=== PATIENT | female | born 1960 | race Caucasian/White ===

== ENCOUNTER 2021-09-22 06:16 | Inpatient (IN) ==
[~2021-09-22 06:16] MED LIST: ULTANE GAS IN ONE
[2021-09-22] MEDS ORDERED: ANCEF VIAL 1 GRAM ONE (06:35)
[2021-09-22] MEDS ORDERED: NS 100 ML IV 100 ML ONE ×2 (06:36→07:00)
[2021-09-22] MEDS ORDERED: NS 1,000 ML IV 1,000 ML ONE ×2 (06:37→07:00)
[2021-09-22] MEDS ORDERED: NS 500 ML IV 500 ML IV ONE ×2 (06:37→11:51)
[2021-09-22] MEDS ORDERED: ZEMURON 100 MG VIAL ONE (06:43)
[2021-09-22] MEDS ORDERED: BRIDION ONE (06:43)
[2021-09-22] MEDS ORDERED: PEPCID 20 MG VIAL ONE (06:43)
[2021-09-22] MEDS ORDERED: XYLOCAINE 2 % (PLAIN) ONE (06:43)
[2021-09-22] MEDS ORDERED: ROBINUL ONE (06:43)
[2021-09-22] MEDS ORDERED: BREVIBLOC ONE (06:43)
[2021-09-22] MEDS ORDERED: DIPRIVAN VIAL 20 ML ONE (06:43)
[2021-09-22] MEDS ORDERED: DECADRON INJ ONE (06:43)
[2021-09-22] MEDS ORDERED: ZOFRAN INJ 4 MG VIAL ONE (06:43)
[2021-09-22] MEDS ORDERED: KETAMINE 50 MG/5 ML-NACL SYRNG ONE (06:43)
[2021-09-22] MEDS ORDERED: PRECEDEX INJ VIAL IVP ONE (06:43)
[2021-09-22] MEDS ORDERED: FENTANYL VIAL INJ 250 mcg ONE ×2 (06:43→09:15)
[2021-09-22] MEDS ORDERED: NEO-SYNEPHRINE INJ ONE (06:44)
[2021-09-22] MEDS ORDERED: EPHEDRINE SULFATE INJ ONE (06:44)
[2021-09-22] MEDS ORDERED: HEPARIN SODIUM IN D5W 75,000 UNITS/1,500 ML BAG ONE (07:00)
[2021-09-22 07:01] VITALS: BMI 33.7
[2021-09-22] MEDS ORDERED: HEPARIN SODIUM INJ 5000 UNITS ONE (08:34)
[2021-09-22] MEDS ORDERED: PROTAMINE SULFATE 50 MG VIAL ONE (09:28)
--- NOTE | 2021-09-22 10:31 | OR.IMMED ---
IMMEDIATE POST-OP NOTE Immediate Post-Op Note Pre-Op Diagnosis: Severe right internal caroTID artery stenosis, history right h emispheric CVA Post-Op Diagnosis: same Procedure: right caroTID endarterectomy and Patch angioplasty Description of Procedure: See operative summary Surgeon/Sorting Machine Operator: Naz Findings: as above Specimens Removed: caroTID artery plaque Estimated Blood Loss: less than 25 cc's Drains: NONE Complications: none, patient awoke with no obvious neurological deficit Post Hospital Plans and Medications: patient to be admitted overnight for observation after a two-hour you covering stay. Final Diagnosis: Severe right internal caroTID artery stenosis
[2021-09-22] MEDS ORDERED: NovoLIN R (or HumuLIN R) SC PRN (10:33)
[2021-09-22] MEDS ORDERED: STERILE WATER IRRIGATION IR ONE (10:44)
[2021-09-22] MEDS ORDERED: BARHEMSYS INJ IVP PRN (11:47)
[2021-09-22] MEDS ORDERED: ZOFRAN INJ 4 MG VIAL IVP PRN (11:47)
[2021-09-22] MEDS ORDERED: PHENERGAN INJ 25 MG IM PRN (11:47)
[2021-09-22] MEDS ORDERED: PROVENTIL NEB TX 0.083% 2.5MG/ 3ML ONE (12:06)
[2021-09-22] MEDS: PROVENTIL NEB TX 0.083% 2.5MG/ 3ML NEB SCH ×3 (12:06→17:06)
--- NOTE | 2021-09-22 12:51 | DR.OPNOTE ---
OP NOTE Pre-Op Diagnosis: Severe stenosis right internal caroTID artery, history right hemisphericCVA Post-Op Diagnosis: same Procedure Date Date Of Procedure: 09/22/21 Procedure: PROCEDURE: right caroTID endarterectomy with patch angioplasty NARRATIVE: The patient was taken to the operative Suite, placed in the Supine position and general endotracheal anesthesia induced . The neck was extended and then prepped and draped in sterile fashion. Time out for the procedure obtained. Incision was made along the border of the right sternocleidomastoid muscle extending through the platysma with electrocautery and dissecting down and dividing the facial vein. All branches of the carotid were dissected free and vessel loops placed around the internal caroTID artery above the plaque, around the external carotid artery and the common carotid artery . The patient was given 5000 units of intravenous Heparin and after 5 minutes all branches of the CaroTID artery were clamped and I opened the common carotid with a number 11 knife and used Minor scissors to divide through the plaque into the internal caroTID artery . 12 Fr [place] shunt placed distally ,then proximally and held in position with vessel loops . Endarterectomy carried out in standard fashion with a [place] dissector, dividing the plaque in the common caroTID artery, feathering it into the internal caroTID artery and eversion endarterectomy of the external carotid artery. All floating material removed. One suture of 6-0 Prolene suture used to tack the intima down and the arteriotomy closed using a 8 mm wide bovine pericardium patch sewing it into position with a running 6-0 Prolene suture from each end . Prior to completion of the closure the shunt was removed, the artery clamped, closure completed and then clamps removed from the common caroTID artery and finally the internal carotid . Ultrasound colorflow doppler showed excellent result . There was no active bleeding. There were three areas of the patch repair site that required figure figure of 8 sutures of 6-0 Proline. Once this was done the platysma closed with running 3- 0 Vicryl suture and applying Surgicel to the suture line of the patch . The skin closed with running 4-0 Vicryl subcuticular suture. Steri-strips applied and the patient extubated and taken to to the recovery room in good condition with no neurological deficits. She was able to move both the right and left arm and the right and left leg with symmetry. Type of Anesthesia: General Anesthetic w/ETT Findings: severe stenosis near total occlusion right internal caroTID artery Specimen/Pathology: plaque of internal caroTID artery Type of Fluids Used:: Lactated Ringers Total Amount of Fluid Infused:: 800 cc's EBL: less than 25 ccs Drains/Tubes Placed: None Complications:: none Needle/Sponge Count:: correct Disposition/Condition: Pt. tolerated procedure without difficulty. Extubated in the OR and taken to PACU in stable condition.then to the eye see you
[2021-09-22] MEDS: LR 1,000 ML IV 1,000 ML IV SCH (13:00)
[2021-09-22] MEDS ORDERED: NARCAN INJ IVP ONE (14:24)
[2021-09-22] MEDS ORDERED: NARCAN INJ ONE (14:30)
[2021-09-22] MEDS: NEURONTIN TAB 600 MG PO SCH ×2 (14:34→21:17)
[2021-09-22] MEDS: LOPRESSOR TAB 25 MG PO SCH (20:44)
[2021-09-22] MEDS: PERCOCET TAB 5/325 MG PO PRN (21:21)
--- NOTE | 2021-09-22 23:01 | NOTE.SOAP ---
Soap Note Note for Day of Date of Exam: 09/22/21 Subjective Data Subjective Data: Doing well since right carotid endarterectomy today. Stable vitals . Taking clear liquids. No neurological deficits. Objective Data Temperature: 98.0 F Pulse Rate: 69 Respiratory Rate: 20 Blood Pressure: 112/69 O2 Sat by Pulse Oximetry: 100 Objective Data: No neurological deficits. Right neck with minimal swelling and intact incision with no bleeding Assessment Assessment: S/P right CEA with patch Plan Plan: Advance to diabetic diet.
[2021-09-23] MEDS: LR 1,000 ML IV 1,000 ML IV SCH ×2 (00:11→02:05)
[2021-09-23] MEDS: PROVENTIL NEB TX 0.083% 2.5MG/ 3ML NEB SCH ×2 (03:50→05:11)
[2021-09-23] MEDS ORDERED: SYNTHROID 150 mcg TAB ONE (05:25)
[2021-09-23] MEDS: NEURONTIN TAB 600 MG PO SCH (05:45)
[2021-09-23] MEDS: PERCOCET TAB 5/325 MG PO PRN (05:45)
[2021-09-23] MEDS ORDERED: SYNTHROID 150 mcg TAB PO SCH (06:30)
[2021-09-23] MEDS: LOPRESSOR TAB 25 MG PO SCH (08:40)
[2021-09-23] MEDS ORDERED: LIPITOR TAB 80 MG PO SCH (09:00)
[2021-09-23] MEDS ORDERED: ASPIRIN EC 81 MG PO SCH (09:00)
[2021-09-23] MEDS ORDERED: EFFEXOR XR 75 MG CAP 24-HR PO SCH (09:00)
[2021-09-23] MEDS ORDERED: BUMEX TAB 1 MG PO SCH (09:00)
--- NOTE | 2021-09-23 09:59 | W.DIS.FURT ---
Summary of Discharge Discharge Summary of Date Date of Exam: 09/23/21 Admission Date Date of Admission: 09/22/21 Admission Diagnosis Hospital Course: 61 year old female with recent right hemispheric stroke with no residual. Known to have severe stenosis of both internal caroTID arteries. Patient underwent uncomplicated right caroTID endarterectomy and Patch angioplasty yesterday . Post procedure she has no neurological deficits . She is doing well with minimal swelling in the right neck. She will be discharged home today on her usual medications including aspirin 81 mg day. She also will be given a prescription for Percocet tablets 5 mg each ,one every six hours PRN pain, # 20. She will follow up with me in one week and at that time will be scheduled for left carotid endarterectomy and patch angioplasty. Vital Signs: Vital Signs (72 hours) 09/22/21 07:03 09/22/21 10:25 09/22/21 10:30 Temperature 99.1 F 97.7 F Pulse Rate 73 73 74 Respiratory Rate 17 18 18 Blood Pressure 117/84 123/56 115/56 Blood Pressure [Right Arm] O2 Sat by Pulse Oximetry 97 97 97 09/22/21 10:35 09/22/21 10:40 09/22/21 10:45 Temperature Pulse Rate 74 75 74 Respiratory Rate 18 18 18 Blood Pressure 119/57 109/55 115/55 Blood Pressure [Right Arm] O2 Sat by Pulse Oximetry 97 97 97 09/22/21 10:50 09/22/21 10:57 09/22/21 11:00 Temperature Pulse Rate 74 72 67 Respiratory Rate 18 18 18 Blood Pressure 112/55 106/56 110/60 Blood Pressure [Right Arm] O2 Sat by Pulse Oximetry 97 92 L 92 L 09/22/21 11:05 09/22/21 11:10 09/22/21 11:15 Temperature Pulse Rate 71 69 69 Respiratory Rate 18 18 18 Blood Pressure 115/62 117/59 122/59 Blood Pressure [Right Arm] O2 Sat by Pulse Oximetry 96 96 96 09/22/21 11:40 09/22/21 11:45 09/22/21 11:46 Temperature Pulse Rate 67 67 66 Respiratory Rate 10 L 18 Blood Pressure 119/54 110/54 Blood Pressure [Right Arm] O2 Sat by Pulse Oximetry 96 98 98 09/22/21 12:00 09/22/21 12:06 09/22/21 12:15 Temperature 98.1 F Pulse Rate 65 65 65 Respiratory Rate 12 9 L Blood Pressure 111/56 121/57 Blood Pressure [Right Arm] 121/57 O2 Sat by Pulse Oximetry 99 99 100 09/22/21 12:21 09/22/21 12:29 09/22/21 12:30 Temperature Pulse Rate 65 66 64 Respiratory Rate 8 L 10 L 12 Blood Pressure 112/53 120/56 119/58 Blood Pressure [Right Arm] O2 Sat by Pulse Oximetry 100 100 100 09/22/21 12:45 09/22/21 13:00 09/22/21 13:15 Temperature Pulse Rate 65 66 69 Respiratory Rate 12 17 19 Blood Pressure 113/54 121/60 119/58 Blood Pressure [Right Arm] O2 Sat by Pulse Oximetry 100 100 99 09/22/21 13:30 09/22/21 13:45 09/22/21 14:00 Temperature Pulse Rate 67 69 63 Respiratory Rate 18 17 18 Blood Pressure 128/59 112/55 Blood Pressure [Right Arm] O2 Sat by Pulse Oximetry 100 100 99 09/22/21 14:01 09/22/21 14:15 09/22/21 14:20 Temperature Pulse Rate 62 59 L 63 Respiratory Rate 17 19 16 Blood Pressure 96/46 83/40 91/49 Blood Pressure [Right Arm] O2 Sat by Pulse Oximetry 100 100 100 09/22/21 14:21 09/22/21 14:30 09/22/21 14:39 Temperature Pulse Rate 65 62 68 Respiratory Rate 20 12 19 Blood Pressure 97/48 99/49 101/52 Blood Pressure [Right Arm] O2 Sat by Pulse Oximetry 95 99 09/22/21 14:42 09/22/21 14:45 09/22/21 15:00 Temperature Pulse Rate 69 64 68 Respiratory Rate 27 H 20 27 H Blood Pressure 99/52 106/52 105/52 Blood Pressure [Right Arm] O2 Sat by Pulse Oximetry 99 100 100 09/22/21 15:15 09/22/21 15:16 09/22/21 15:30 Temperature Pulse Rate 61 61 66 Respiratory Rate 9 L 13 12 Blood Pressure 119/57 124/61 Blood Pressure [Right Arm] O2 Sat by Pulse Oximetry 99 99 100 09/22/21 15:45 09/22/21 16:00 09/22/21 16:15 Temperature Pulse Rate 67 65 67 Respiratory Rate 17 16 11 L Blood Pressure 107/56 103/51 Blood Pressure [Right Arm] O2 Sat by Pulse Oximetry 100 100 100 09/22/21 16:30 09/22/21 16:45 09/22/21 17:00 Temperature Pulse Rate 70 69 71 Respiratory Rate 17 10 L 11 L Blood Pressure 100/50 114/55 Blood Pressure [Right Arm] O2 Sat by Pulse Oximetry 100 100 99 09/22/21 17:15 09/22/21 17:30 09/22/21 17:45 Temperature Pulse Rate 71 71 74 Respiratory Rate 14 13 16 Blood Pressure 116/54 Blood Pressure [Right Arm] O2 Sat by Pulse Oximetry 100 100 100 09/22/21 18:00 09/22/21 19:00 09/22/21 20:00 Temperature 98.0 F Pulse Rate 71 70 62 Respiratory Rate 10 L 10 L 9 L Blood Pressure 110/53 112/54 110/53 Blood Pressure [Right Arm] O2 Sat by Pulse Oximetry 100 100 100 09/22/21 21:00 09/22/21 21:21 09/22/21 22:00 Temperature Pulse Rate 61 69 Respiratory Rate 12 20 16 Blood Pressure 114/58 118/58 Blood Pressure [Right Arm] O2 Sat by Pulse Oximetry 98 99 09/22/21 22:21 09/22/21 23:00 09/22/21 23:01 Temperature 98.0 F Pulse Rate 71 69 Respiratory Rate 16 20 20 Blood Pressure 103/51 112/69 Blood Pressure [Right Arm] O2 Sat by Pulse Oximetry 99 100 09/23/21 00:00 09/23/21 01:00 09/23/21 02:00 Temperature 98.3 F Pulse Rate 74 71 76 Respiratory Rate 13 19 12 Blood Pressure 109/59 121/59 121/57 Blood Pressure [Right Arm] O2 Sat by Pulse Oximetry 100 94 L 100 09/23/21 03:00 09/23/21 04:00 09/23/21 05:00 Temperature Pulse Rate 81 78 88 Respiratory Rate 14 10 L 22 Blood Pressure 151/69 130/59 Blood Pressure [Right Arm] O2 Sat by Pulse Oximetry 100 96 95 09/23/21 05:01 09/23/21 05:11 09/23/21 05:30 Temperature Pulse Rate 96 H 92 H Respiratory Rate 24 Blood Pressure 156/70 145/65 Blood Pressure [Right Arm] O2 Sat by Pulse Oximetry 96 96 09/23/21 05:45 09/23/21 06:00 09/23/21 06:30 Temperature Pulse Rate 82 83 Respiratory Rate 14 15 14 Blood Pressure 150/67 149/67 Blood Pressure [Right Arm] O2 Sat by Pulse Oximetry 93 L 95 09/23/21 06:45 09/23/21 07:00 09/23/21 07:31 Temperature Pulse Rate 81 Respiratory Rate 16 8 L Blood Pressure 152/67 131/58 Blood Pressure [Right Arm] O2 Sat by Pulse Oximetry 98 09/23/21 08:00 09/23/21 08:01 09/23/21 08:31 Temperature 98.7 F Pulse Rate 88 87 86 Respiratory Rate 8 L 9 L 9 L Blood Pressure 131/58 157/67 154/67 Blood Pressure [Right Arm] O2 Sat by Pulse Oximetry 98 98 99 09/23/21 09:00 09/23/21 09:01 Temperature Pulse Rate 79 79 Respiratory Rate 11 L 9 L Blood Pressure 142/64 Blood Pressure [Right Arm] O2 Sat by Pulse Oximetry 97 97 Labs: Laboratory Last Values POC Glucose (mg/dL) 134 mg/dL (65-99) H 09/23/21 05:36 SARS CoV-2 RNA Rapid SABINA Negative (NEGATIVE) 09/22/21 12:23 Tissue Pathology To follow 09/22/21 09:12 Blood Type O POSITIVE 09/22/21 07:00 Antibody Screen Negative 09/22/21 07:00 Reason For Visit: SEVERE STENOSIS RIGHT INTERNAL CAROTID ARTERY Discharge Date Discharge Date: 09/23/21 Discharge Diagnosis All Active Problems (Updated 09/23/21 @ 09:58 by Favian Childs) Carotid artery stenosis with cerebral infarction over 8 weeks ago (Acute) Plan of Treatment: Continue with present treatment and follow up plan. Pt is to keep follow up appointment as instructed and take medications as ordered. Discharge Medications Discharge Medications: diphenhydramine [From Benadryl] Allergy (Verified 09/22/21 06:42) meloxicam Allergy (Verified 09/22/21 06:42) strawberry Allergy (Verified 09/22/21 06:42) CONTINUE taking the following medications Restasis 1 drp OPHTHALMIC (EYE) BID 09/22/21 [History] albuterol sulfate [ProAir HFA] 1 puff INHALATION TID 09/22/21 [History] aspirin 81 mg PO DAILY 09/22/21 [History] atorvastatin [Lipitor] 80 mg PO QHS 09/22/21 [History] bumetanide 1 mg PO BID 09/22/21 [History] gabapentin 800 mg PO TID 09/22/21 [History] glipizide 5 mg PO BID 09/22/21 [History] levothyroxine [Levoxyl] 150 mcg PO DAILY 09/22/21 [History] metformin 1,000 mg PO BID 09/22/21 [History] metoprolol tartrate 25 mg PO BID 09/22/21 [History] multivitamin 1 tab PO QAM 09/22/21 [History] naproxen [Naprosyn] 1,000 mg PO BID PRN 09/22/21 [History] oxycodone-acetaminophen 1 tab PO Q8H PRN 09/22/21 [History] tizanidine 4 mg PO BID PRN 09/22/21 [History] venlafaxine 75 mg PO DAILY 09/22/21 [History] Follow up and Referral Follow Up: 1 Week (Dr. Childs) Discharge Disposition Assessment: See hospital course above Discharge Disposition: to home Discharge Condition: stable and good Discharge Plan Discharge Plan Hospital Course: 61 year old female with recent right hemispheric stroke with no residual. Known to have severe stenosis of both internal caroTID arteries. Patient underwent uncomplicated right caroTID endarterectomy and Patch angioplasty yesterday . Post procedure she has no neurological deficits . She is doing well with minimal swelling in the right neck. She will be discharged home today on her usual medications including aspirin 81 mg day. She also will be given a prescription for Percocet tablets 5 mg each ,one every six hours PRN pain, # 20. She will follow up with me in one week and at that time will be scheduled for left carotid endarterectomy and patch angioplasty. Patient Disposition: 01 HOME, SELF-CARE Condition: Stable Health Concerns: Post Hospitalization: new medications and changes needed to prevent readmission or further decline. Pt educated and given instructions on all concerns. Plan of Treatment: Continue with present treatment and follow up plan. Pt is to keep follow up appointment as instructed and take medications as ordered. Assessment: See hospital course above Prescription drug monitoring program results: PDMP reviewed and no concerns identified Prescriptions: Continued naproxen [Naprosyn] 500 mg Tablet 1,000 mg PO BID PRNRF: 0 gabapentin 800 mg Tablet 800 mg PO TID RF: 0 levothyroxine [Levoxyl] 150 mcg Tablet 150 mcg PO DAILY RF: 0 bumetanide 1 mg Tablet 1 mg PO BID RF: 0 metoprolol tartrate 25 mg Tablet 25 mg PO BID RF: 0 venlafaxine 75 mg Tablet 75 mg PO DAILY RF: 0 tizanidine 4 mg Tablet 4 mg PO BID PRNRF: 0 metformin 1,000 mg Tablet 1,000 mg PO BID RF: 0 oxycodone-acetaminophen 7.5-325 mg Tablet 1 tab PO Q8H PRNRF: 0 glipizide 5 mg Tablet 5 mg PO BID RF: 0 Restasis 0.05 % [place] 1 drp OPHTHALMIC (EYE) BID RF: 0 aspirin 81 mg Capsule 81 mg PO DAILY RF: 0 multivitamin Tablet 1 tab PO QAM RF: 0 atorvastatin [Lipitor] 80 mg Tablet 80 mg PO QHS RF: 0 albuterol sulfate [ProAir HFA] 90 mcg/actuation Hfa Aerosol Inhaler 1 puff INHALATION TID RF: 0 Follow ups/Referrals Follow ups/Referrals: NFD,None [Primary Care Provider] - 1 WEEK Instructions Stand Alone Forms: Excuse From Work or School, Precautions for COVID19, [facility], Patient Portal, Social Distancing
[2021-09-23 10:41] VITALS: BP 161/72
== END 2021-09-23 11:15 | disposition home or self-care (01) | DRG 39 ==
LOC: SURG1 06:16 → EDUNIT# 07:30 → ICU 11:24
PROVIDERS: ADMIT Surgery; ATTEND Surgery